=== PATIENT | female | born 1950 | race Caucasian/White ===

== ENCOUNTER 2018-10-02 07:04 | Inpatient (IN) ==
[2018-10-02] MEDS ORDERED: Dexamethasone Inj 20 MG/5 ML Vial IV.PUSH ONE (08:09)
[2018-10-02] MEDS ORDERED: Sodium Chlor 0.9% Inj 500 ML IV.CONT ONE (08:15)
[2018-10-02] MEDS ORDERED: Chlorhexidine Gluconate 2% 1 Pack (2 Cloths) TOPICAL ONE (08:15)
[2018-10-02] MEDS ORDERED: Chlorhexidine 4% Topical 120 APPLIC/120 ML Bottle TOPICAL SCH (08:15)
[2018-10-02] MEDS ORDERED: Metoprolol Tartrate 25 MG Tablet PO ONE (08:15)
[2018-10-02] MEDS ORDERED: Bupivacaine Liposomal PF 1.3% Inj 20 ML Vial ONE (08:56)
[2018-10-02] MEDS ORDERED: SODIUM CHLOR 0.9% IV.SIG SCH (09:00)
[2018-10-02] MEDS ORDERED: ceFAZolin 2 GM Premix Inj 2 GM/50 ML PIGGYBACK IV.SIG SCH (09:00)
[2018-10-02] MEDS ORDERED: Vancomycin Inj 1,000 MG in Sodium Chlor 0.9% Inj 250 ML IV.SIG SCH (09:00)
[2018-10-02] MEDS ORDERED: Sodium Chlor 0.9% Inj 73.07 ML, Ropivacaine 0.5% PF Inj 24.63 ML, Ketorolac Inj 30 MG, ... P-ARTICULR SCH ×4 (09:00)
[2018-10-02] MEDS ORDERED: TRANEXAMIC ACID IV.SIG SCH (09:00)
[2018-10-02] MEDS ORDERED: Famotidine PF Inj 20 MG/2 ML Vial ONE (09:34)
[2018-10-02] MEDS ORDERED: fentaNYL Citrate Inj 100 MCG/2 ML Ampul ONE (09:47)
[2018-10-02] MEDS ORDERED: fentaNYL Citrate Inj 250 MCG/5 ML Ampul ONE (09:47)
[2018-10-02] MEDS ORDERED: Morphine Inj 4 MG/ML Vial IV.PUSH PRN (12:00)
[2018-10-02] MEDS ORDERED: Aluminum/Magnesium/Simethacone Susp 30 ML UDC PO PRN (12:00)
[2018-10-02] MEDS ORDERED: Zolpidem Tartrate 5 MG Tablet PO PRN (12:00)
[2018-10-02] MEDS ORDERED: Bisacodyl 10 MG Supp RECTAL PRN (12:00)
[2018-10-02] MEDS ORDERED: Post-op Orders (for Pharmacy) OTHER STA (12:00)
--- NOTE | 2018-10-02 12:05 | P.OP ---
- Preoperative Diagnosis (1) Osteoarthritis of right knee - Postoperative Diagnosis (1) Osteoarthritis of right knee Date of procedure: 10/02/18 Procedure: Right total knee arthroplasty [facility] Surgeon: Raphael San MD Computer Systems Manager: JORDAN Porter The surgical procedure was assisted by my Advanced Registered Nurse Practitioner. My MANUFACTURING OPERATIONS MANAGER presence was necessary throughout this case for the manipulation and positioning of the surgical extremity. My MANUFACTURING OPERATIONS MANAGER was assisting me throughout the duration of this procedure. The skill set of an Advance Registered Nurse Practitioner was medically necessary to complete this procedure. During the surgical case, the medical or surgical instrument maker was working at the back table and the Advance Registered Nurse Practitioner was directly assisting me. Operation and Findings: IMPLANTS: DePuy Attune: Patella: size 32. Femur, posterior stabilized size 6. Tibia, rotating platform size 5. Tibial insert, rotating platform, posterior stabilized size 5 mm thickness. ESTIMATED BLOOD LOSS: 200 cc TOURNIQUET TIME: 40 minutes at 250 mmHg pressure. JUSTIFICATION FOR PROCEDURE: The patient has end-stage osteoarthritis to the knee. There is an attached conservative measures pathway form in the chart that describes the nonoperative measures that were undertaken prior to consideration of surgical management. The patient understood the risks and benefits of surgical management. See my office notes for further details PROCEDURE: The patient was brought back to the operative theatre. Adequate anesthesia was obtained. The patient received intravenous vancomycin and Ancef. The lower extremity was prepped and draped in the usual sterile fashion.The leg was exsanguinated, the tourniquet was raised. A standard anterior incision was performed followed by medial parapatellar arthrotomy was performed. End-stage arthritis was identified. Osteotomy of the patella was performed. We drilled holes for the patella. We trialed the patella component. We placed an intramedullary guide into the distal femur. We ultimately resected 13 mm off of the distal femur in 5 degrees of valgus. The remnants of the ACL and PCL were resected. Osteotomy of the proximal tibia was performed, resecting 6 mm off of the medial side. This was done with 3 degrees of posterior slope using an extramedullary guide. The distal end of the guide was placed in the mid aspect of the ankle. We noticed that the lateral compartment was much tighter than the medial compartment in both flexion and extension. We did need to recess the popliteus tendon and the lateral collateral ligament to obtain excellent ligament balancing. The femur was sized, and four chamfer cuts were completed in 3 of external rotation. We then cut the central box in the distal femur to replace the PCL. We resected the remnants of the menisci and removed osteophytes off of the femur and tibia. We then trialed the knee. We punched the tibia for the keel, and then used standard technique to cement in components. Excess cement was removed. We trialed the knee again and the final polyethylene thickness was chosen to provide extension to 0 degrees, and flexion of 140 degrees to gravity. The ligaments were appropriately balanced. Lateral release was necessary to obtain excellent patellofemoral tracking. The tourniquet was released and adequate hemostasis was obtained. An intra- articular injection of a ropivacaine cocktail was injected. The posterior knee was inspected for excess cement, which was removed. The final polyethylene was put into position after thorough irrigation. We then closed deep fascia with a #2 Stratafix followed #1 V lock and by skin with 2-0 Vicryl followed by Dermabond dressing. Postop plan is to weight-bear as tolerated. DVT prophylaxis will be performed with SCDs, STEFAN rivas, early mobilization, and aspirin.
[2018-10-02] MEDS: Sod Chloride 0.9% Inj 1,000 ML IV.CONT SCH (12:44)
[2018-10-02] MEDS ORDERED: TRANEXAMIC ACID IV.SIG ONE (13:12)
[2018-10-02] MEDS ORDERED: SODIUM CHLOR 0.9% IV.SIG ONE (13:12)
[2018-10-02] MEDS ORDERED: *morphine SULFATE 4 MG/ML PERIprocedure ONLY ONE (13:15)
--- NOTE | 2018-10-02 14:02 | XR ---
EXAM DATE: 10/02/2018 1:08 PM EST AGE/SEX: 68 years / Female INDICATIONS: Post op right knee. CLINICAL DATA: This is the patient's initial encounter. Patient reports that signs and symptoms have been present for 1 day and indicates a pain score of Nonresponsive. MEDICAL/SURGICAL HISTORY: None. None. COMPARISON: No prior exams available for comparison. FINDINGS: AP and lateral views of the knee following arthroplasty reveals a prosthesis in anatomic alignment. F racture is not appreciated. Minimal air is present within the joint space along with a small effusion . CONCLUSION: Status post total knee arthroplasty. Irineo Chappell MD FACR : Electronically signed by: Irineo Chappell MD Board Certified Radiologist 10/02/2018 2:01 PM EST
[2018-10-02] MEDS: ceFAZolin Inj 1 GM in Sodium Chlor 0.9% Inj 100 ML IV.SIG SCH ×2 (16:41→22:10)
[2018-10-02] MEDS: Multivitamin/Minerals Therapeutic Tablet PO SCH (20:20)
[2018-10-02] MEDS: Senna/Docusate Sodium 8.6/50 MG Tablet PO SCH (20:20)
[2018-10-03] MEDS: Sod Chloride 0.9% Inj 1,000 ML IV.CONT SCH (02:00)
[2018-10-03] MEDS: ceFAZolin Inj 1 GM in Sodium Chlor 0.9% Inj 100 ML IV.SIG SCH (05:17)
[2018-10-03 05:56] LABS: Hematocrit 30.9 % (35.0-46.0); Hemoglobin 10.9 gm/dL (11.6-15.3)
--- NOTE | 2018-10-03 07:13 | P.PNOP ---
Subjective Interval history: The patient is resting comfortably in bed in no acute distress. The patient denies any pain to the right knee. The patient has been ambulatory to the bathroom. The patient is requesting to go home today. Physical Exam Vital signs: Vital Signs 10/02/18 08:52 10/02/18 08:54 10/02/18 12:27 Temperature 98.5 F 97.7 F Pulse Rate 69 72 73 Respiratory Rate 18 16 Blood Pressure 135/81 144/72 H Pulse Oximetry 96 99 97 10/02/18 12:30 10/02/18 12:45 10/02/18 13:06 Temperature 98 F Pulse Rate 70 72 71 Respiratory Rate 16 14 20 Blood Pressure 136/63 131/63 122/66 Pulse Oximetry 98 95 100 10/02/18 13:15 10/02/18 13:30 10/02/18 14:30 Temperature Pulse Rate 68 64 Respiratory Rate 11 L 10 L Blood Pressure 117/73 128/73 Pulse Oximetry 98 98 97 10/02/18 16:43 10/02/18 21:08 10/02/18 23:43 Temperature 97.4 F L 98.2 F 98.3 F Pulse Rate 75 68 64 Respiratory Rate 18 17 18 Blood Pressure 129/72 128/69 119/60 Pulse Oximetry 94 L 93 L 96 10/03/18 05:39 Temperature 98.1 F Pulse Rate 60 Respiratory Rate 16 Blood Pressure 112/58 L Pulse Oximetry 98 Intake & Output 10/02/18 10/03/18 10/03/18 18:59 06:59 18:59 Intake Total 2108.96 / 2108.96 1380 / 1380 Output Total 200 / 200 900 / 900 Balance 1908.96 / 1908.96 480 / 480 Weight 89.6 kg 70.2 kg Intake: IV 508.96 / 508.96 1200 / 1200 NS Inj 1,000 ML @ 80 mls/hr IV. 1000 / 1000 CONT .[id number] EDMUNDO Rx#:[id number] Cyklokapron Inj 896 MG In NS 108.96 / 108.96 Inj 100 ML @ 200 mls/hr IV.SIG UTILITY MECHANIC EDMUNDO Rx#:[id number] Vancomycin Inj 1,000 MG In NS 250 / 250 Inj 250 ML @ 250 mls/hr IV.SIG UTILITY MECHANIC EDMUNDO Rx#:[id number] Ancef 2 GM Premix Inj 2 gm In 50 / 50 50 ml @ 100 mls/hr IV.SIG UTILITY MECHANIC EDMUNDO Rx#:[id number] Ancef Inj 1 GM In NS Inj 100 ML 100 / 100 200 / 200 @ 200 mls/hr IV.SIG Q6H EDMUNDO Rx #:[id number] Oral 180 / 180 Anesthesia Amount 1600 / 1600 Output: Urine 900 / 900 Estimated Blood Loss 200 / 200 Other: Date of Last Bowel Movement 10/02/18 # Bowel Movements 1 Weight On Admission 89.6 kg Narrative: The patient's dressing is clean, dry, and intact. EHL/TA/G are intact. 2+ pedal pulse. The patient's calf is soft and nontender. Sensation is intact to light touch distally. Results - Labs CBC & Chem 7: 10/03/18 04:41 Laboratory Results - last 24 hr 10/02/18 10/03/18 08:47 04:41 Hgb 10.9 L Hct 30.9 L Blood Type A Positive Blood Type Recheck Required Antibody Screen Negative - Imaging Impressions Knee X-Ray 10/02/18 12:00 CONCLUSION: Status post total knee arthroplasty. Irineo Chappell MD FACR : - Procedures Right total knee arthroplasty Assessment and Plan - Assessment and Plan POD #1: [Right] total knee arthroplasty 1. Weightbearing as tolerated on [right] lower extremity. 2. Aspirin 81 mg twice daily for DVT prophylaxis. 3. Ice as needed for swelling. 4. Stable per ortho for discharge to home today. The patient does not require any home health and will receive physical therapy at home from [facility]. 5. The patient will follow up with Dr. San and/or JORDAN Guzman as previously scheduled.
[2018-10-03] MEDS ORDERED: Dexamethasone Inj 20 MG/5 ML Vial IV.PUSH ONE (08:00)
[2018-10-03] MEDS ORDERED: hydroCHLOROthiazide 25 MG Tablet PO SCH (09:00)
[2018-10-03] MEDS: Senna/Docusate Sodium 8.6/50 MG Tablet PO SCH (09:11)
[2018-10-03] MEDS: Multivitamin/Minerals Therapeutic Tablet PO SCH (09:11)
[2018-10-03 12:25] VITALS: BP 102/56; PULSE 73; RESP 17; TEMP 98.2; O2SAT 95
--- NOTE | 2018-10-04 16:14 | P.DS ---
Date of admission: 10/02/18 07:04 Primary care physician: Rodney Leiva MD Attending physician on discharge: Raphael San Anticipated date of discharge: 10/03/18 Brief History from admission: The patient was admitted to the hospital for severe OA of the right knee to have a right TKA. DS: Diagnosis - Discharge Diagnosis (1) Status post total knee replacement, right Status: Acute (2) Osteoarthritis of right knee Status: Acute DS: Summary Hospital Course: The patient was admitted to the hospital for severe osteoarthritis of the [right ] knee to have a [right] total knee arthroplasty. The patient's surgery went well with no complication. The patient is on a [regular] diet. The patient's DVT prophylaxis includes use of [ASA 81 mg PO BID]. The patient is weightbearing as tolerated. The patient was discharged [home with physical therapy from [facility]] and will follow up in the office with Dr. San and/ or JORDAN Guzman as previously scheduled. - Time Spent with Patient Total time spent providing and/or coordinating discharge services: Greater than 30 minutes - Quality: VTE Deep Vein Thrombosis/Pulmonary Embolism Present on Admission: No Exam Narrative: The patient's dressing is clean, dry, and intact. EHL/TA/G are intact. 2+ pedal pulse. The patient's calf is soft and nontender. Sensation is intact to light touch distally. Results Procedures completed during hospitalization: Right total knee arthroplasty - Impressions ITS Impressions Knee X-Ray 10/02/18 12:00 CONCLUSION: Status post total knee arthroplasty. Irineo Chappell MD FACR : Discharge Plan - Discharge Disposition Patient Disposition: Discharge Home - Discharge Condition Condition: Stable - Discharge Order Discharge Orders: Discharge Order (Routine); Ordered 10/02/18 Ordered By: Panchito Garcia - Discharge Details Anticipated Discharge Date: 10/03/18 - Physicians Team Primary Care Provider: Rodney Leiva Attending Provider: Raphael San - Rxs /Orders / Referrals /Forms Prescriptions: Continue hydrochlorothiazide 25 mg Tablet 25 mg PO EVERY OTHER DAY hydrochlorothiazide 12.5 mg Capsule 50 mg PO EVERY OTHER DAY losartan 25 mg Tablet 100 mg PO DAILY pravastatin 20 mg Tablet 50 mg PO EVERY OTHER DAY pravastatin 20 mg Tablet 25 mg PO EVERY OTHER DAY Ambulatory Orders / Order Sets / DME: Adjustable Commode 3-in-1 (1 each) (Routine) Location: Determined by Patient Ordered By: Panchito Garcia CPM - Continuous Passive Motion Machine (1 each) (Routine) Location: Determined by Patient Ordered By: Panchito Garcia Walker With Front Wheels (1 each) (Routine) Location: Determined by Patient Ordered By: Panchito Garcia Referrals: Raphael San MD [Physician] - See Instructions (F/U in the office with Dr. San or Kenton Garcia APRN as previously scheduled.) Rodney Leiva MD [Primary Care Provider] - See Instructions - Discharge Instructions Patient Printed Instructions: How to Use an Incentive Spirometer (DC), How to Choose and Use a Walker (GEN), Narcotic Safety (DC), Knee Replacement (DC) Additional Instructions: Do not change surgical dressing, keep clean and intact. Continue to wear STEFAN hose and use incentive spirometer after discharge home. Make or keep your follow up appointments as directed. - Post Discharge Care Plan Care Plan Goals: Discharge Care Plan Goals for Total Knee Replacement You have undergone knee replacement surgery. Your doctor replaced your painful joint with an artificial joint to relieve pain and restore movement. Here are some goals to help you heal well. Directions to Meet your Goals: 1. Activity & Exercises: * Take pain medicine as directed by your doctor. * Sit in chairs with arms. The arms make it easier for you to stand up or sit down. * Dont sit for more than 30 to 45 minutes at one time. * Nap if you are tired, but dont stay in bed all day. * Sleep with a pillow under your ankle, not your knee. Be sure to change the position of your leg during the night. * Wear the support stockings you were given in the hospital as directed by your surgeon. 2. Prevent Falls/Injury: The herrera to successful recovery is movement with walking and exercising your knee as directed by your doctor. * Arrange your household to keep the items you need handy. Keep everything else out of the way. * Remove items that may cause you to fall, such as throw rugs and electrical cords. * Use nonslip bath mats, grab bars, an elevated toilet seat, and a shower chair in your bathroom * Sit on a shower stool or chair when you shower to keep from falling. * Until your balance, flexibility, and strength improve, use a cane, crutches, a walker, handrails, or someone to help you. * Keep your hands free by using a backpack, rosa pack, apron, or pockets to carry things * Walk up and down stairs with support. Try one step at a time. Use the railing if possible. * Dont drive until your doctor says its OK. * Dont drive while you are taking opioid pain medicine. 3. Precautions: * Prevent infection. Any infection will need to be treated immediately. Call your doctor right away if you think you might have an infection. * Tell your dentist that you have an artificial joint and take antibiotics as prescribed before any dental work. * Tell all your healthcare providers about your artificial joint before any medical procedure. * Maintain a healthy weight. Get help to lose any extra pounds. Added body weight puts stress on the knee. * Your medications may include blood-thinning medicine to prevent blood clots or antibiotics to prevent infection-prevent any falls or cuts 4. Incision Care: * Prevent infection by washing your hands often. If an infection occurs, it will need to be treated right away. * Call your doctor right away if you think you may have an infection. Symptoms include a fever or an incision that leaks white, green, or yellow fluid. * Don't soak your incision in water until your doctor says its OK. This means no hot tubs, bathtubs, or swimming pools. * Follow your doctor's instructions for changing the dressing. * Dont rub the incision, or apply creams or lotions to it. * If you notice any redness or drainage around the bandage site, contact your surgeon's office immediately. 5. Follow-Up: Do Not miss your follow-up appointment. Keep up with all your appointments and yearly check ups When to call your doctor: Call your doctor right away if you have: Fever of 100.4F (38C) or higher, or as directed by your doctor Shaking chills Stiffness, or inability to move the knee Increased swelling in your leg Increased redness, tenderness, or swelling in or around the knee incision Drainage from the knee incision Increased knee pain Call 911: Call 911 right away if you have: Chest pain Shortness of breath Any pain or tenderness in your calf
== END 2018-10-03 14:27 | disposition home or self-care (01) | DRG 470 ==
LOC: HSDI 07:04 → N06 14:39
PROVIDERS: ADMIT Orthopaedic Surgery; ATTEND Orthopaedic Surgery
DX: M17.11 Unilateral primary osteoarthritis, right knee
CPT/HCPCS: 73560; 85014; 85018; 86850; 86900; 86901; 94150; 97110; 97116; 97150; 97162; 97166; C1776; C9290; J0131; J0690; J0735; J1100; J1580; J1885; J2250; J2270; J2795; J3010; J3370; J7030; J7050; J7120; L1830